=== PATIENT | female | born 1940 | race Caucasian/White ===

== ENCOUNTER 2017-10-28 13:07 | Outpatient (CLI) | payer MEDICARE, OTHER ==
--- NOTE | 2017-10-28 13:53 | RAD ---
CHEST PA AND LATERAL: History: 77-year-old female with history of dyspnea. Comparison: 01-09-15 FINDINGS: There is some nodular fullness of the left hilar region when compared to prior exam, 01-09-15. There is some patchy linear parenchymal changes in the lateral aspect of the mid and upper left lung zone extending to the lateral pleura. There is nonspecific and could represent a small focus of acute pneumonia although it could conceivably represent some post obstructive pneumonitis secondary to nod ular fullness in the left hilar region with a potential left hilar mass or adenopathy. Hyperinflation and bullous changes, particularly in the right upper lobe. Stable bibasilar chronic lung changes. IMPRESSION: Somewhat prominent nodularity of the left hilum raising concern for mass or adenopathy. New somewhat linear parenchymal change in the left upper mid lung zone laterally. This certainly could represent s ome acute pneumonia or possibly post obstructive pneumonitis. Consider follow up CT scan. Biapical hy perinflation, particularly on the right side. Stable chronic lung changes in the bases. POS: BRIANNA
== END 2017-10-28 13:08 | disposition home or self-care (01) ==
LOC: RAD 13:07
PROVIDERS: ATTEND Internal Medicine Critical Care Medicine
DX: R06.00 Dyspnea, unspecified (principal)
CPT/HCPCS: 71046

== ENCOUNTER 2017-11-10 13:46 | Outpatient (CLI) | payer MEDICARE, OTHER ==
--- NOTE | 2017-11-10 15:36 | RAD ---
TWO VIEWS CHEST 11/10/17 PROVIDED CLINICAL HISTORY: Dyspnea. FINDINGS: COMPARISON: 10/28/17 Cardiac and mediastinal silhouette is unchanged in appearance. Chronic obstructive changes are redemo nstrated. Prominence of the left hilum and scarring type changes involving the left hemithorax are re demonstrated. No definite evidence for pleural fluid or pneumothorax. Postoperative changes are again seen associated with the right proximal humerus. IMPRESSION: Persistent abnormal appearance to the left hilum that may reflect mass or adenopathy. Consider chest CT. POS: Jaleesa
== END 2017-11-10 13:47 | disposition home or self-care (01) ==
LOC: RAD 13:46
PROVIDERS: ATTEND Internal Medicine Critical Care Medicine
DX: R06.00 Dyspnea, unspecified (principal); R91.8 Other nonspecific abnormal finding of lung field
CPT/HCPCS: 71046

== ENCOUNTER 2018-01-11 12:37 | Outpatient (CLI) | payer MEDICARE, OTHER ==
--- NOTE | 2018-01-11 14:44 | RAD ---
TWO VIEW CHEST: HISTORY: Dyspnea. COMPARISON: 11/10/17. FINDINGS: Hyperexpansion again noted. Flattened diaphragms and blunted CP angles appear stable. The lungs aldair ear clear with no infiltrate seen. Bullous changes in the upper lungs again noted. Heart size withi n normal range. A wedge compression deformity involving the L1 vertebrae is again seen. This appears stable. IMPRESSION: Hyperexpansion and changes of chronic obstructive pulmonary disease again noted. No acute process or interval change noted. POS: [facility]
== END 2018-01-11 12:38 | disposition home or self-care (01) ==
LOC: RAD 12:37
PROVIDERS: ATTEND Internal Medicine Critical Care Medicine
DX: R06.00 Dyspnea, unspecified (principal); J98.4 Other disorders of lung
CPT/HCPCS: 71046

== ENCOUNTER 2018-11-28 13:14 | Emergency (ER) | payer MEDICARE, OTHER ==
[~2018-11-28 13:14] MED LIST: Iopamidol 370 76% 100 ML VIAL ONE
[2018-11-28] MEDS ORDERED: methylPREDNISolone Sod Succ/PF 125 MG/2 ML VIAL ONE (13:53)
[2018-11-28] MEDS ORDERED: Water For Inject, Bacteriostat 30 ML ONE (13:53)
--- NOTE | 2018-11-28 14:03 | RAD ---
Chest AP view INDICATION: Shortness of breath COMPARISON: December 31, 2014 and January 11, 2018 FINDINGS: Lungs:COPD changes stable. Cardiac silhouette pulmonary vasculature:Mild cardiomegaly is stable. Pulmonary vasculature appears w ithin normal limits. Pleural spaces:No pleural effusion or pneumothorax is demonstrated. Upper abdomen:No abnormality seen. Osseous structures: No acute osseous abnormality. There is a healed, instrumented proximal right jeanie radha fracture. Additional findings:None. IMPRESSION: No acute cardiopulmonary abnormality.
[2018-11-28 14:22] LABS: Band 6 % (5-11); Eosinophils 1 % (0-10); Hemoglobin 13.2 g/dL (12.0-16.0); Lymphocytes 15 % (21-51); MDiff Complete? YES; Mean Corpuscular HGB CONC 33.3 g/dL (32.0-36.0); Mean Corpuscular Hemoglobin 29.5 pg (27.0-31.0); Mean Corpuscular Volume 88.6 fL (78.0-98.0); Mean Platelet Volume 8.1 fL (7.4-10.4); Monocytes 13 % (0-10); Neutrophil 63 % (42-75); Platelet Count 166 thou/uL (130-400); Platelet Morphology Comment Appears Adequate; Red Blood Cell (RBC) Count 4.47 mill/uL (4.20-5.40); White Blood Cell (WBC) Count 5.9 thou/uL (4.8-10.8)
[2018-11-28 14:28] LABS: ALT (SGPT) 58 U/L (8-55); AST (SGOT) 66 U/L (5-34); Albumin 3.9 g/dL (3.4-4.8); Alkaline Phosphatase 102 U/L (40-150); Anion Gap 16 mmol/L (10-20); BUN (Urea Nitrogen) 14 mg/dL (9.8-20.1); Bilirubin, Total 0.4 mg/dL (0.2-1.2); CK (CPK) 33 U/L (29-168); Calc. Creatinine Clearance 0 mL/min (70-130); Calcium 10.5 mg/dL (7.8-10.44); Carbon Dioxide 27 mmol/L (23-31); Chloride 97 mmol/L (98-107); Estimated GFR-MDRD 43; Glucose 111 mg/dL (83-110); Potassium 3.9 mmol/L (3.5-5.1); Protein, Total 6.9 g/dL (6.0-8.3); Sodium 136 mmol/L (136-145)
--- NOTE | 2018-11-28 15:26 | CT ---
CTA Angio Chest W WO Con 11/28/2018 2:33 PM Indication: Chest Pain Technique: Multiple CTA images were obtained of the thorax with IV contrast. 3D reformatted images were constructed from the raw data. Comparison: CT thorax dated June 05, 2012 Findings: Pulmonary arteries: No central or segmental pulmonary embolus is evident. Heart and Great Vessels: Normal appearing. There is small pericardial effusion Lungs:There is severe emphysema. There is prominent bolus changes involving both upper lobes as well as portions of the right middle lobe and right lower lobe. There is a spiculated pulmonary nodule which is new involving the right lower lobe on image 124 series 9 measuring 1.2 cm. There is some adj acent tree-in-bud nodularity. There are smaller tree-in-bud nodules seen within the superior segment of the right lower lobe. There is additional tree-in-bud nodularity seen within the left lung . There is an additional spiculated 1 cm nodule within the superior segment of the left forearm and image 73 of series 9. There is subsegmental volume loss within the lingula. Pleural space: Clear. Upper Abdomen: There are bilateral renal cysts. Adrenal glands are normal appearing. The gallbladder surgically absent. There are still scattered colonic diverticula. Osseous Structures: Thoracolumbar scoliosis. No acute fracture or subluxation demonstrated. There is a stable remote L1 compression fracture Impression: 1. No central or segmental pulmonary embolus. 2. Severe emphysema with new pulmonary nodules. There are 2 separate spiculated nodules, one in each of the lower lobes. There are scattered areas of tree-in-bud nodularity. Overall the nodularity may be related to bronchiolitis of infectious or inflammatory etiology. Appropriate therapy and short-ter m CT follow-up in 6-8 weeks is recommended to document stability or resolution. 3. Bilateral renal cysts 4. Colonic diverticulosis
--- NOTE | 2018-12-01 15:05 | EKG ---
Test Reason : Blood Pressure : / mmHG Vent. Rate : 109 BPM Atrial Rate : 109 BPM P-R Int : 144 ms QRS Dur : 084 ms QT Int : 328 ms P-R-T Axes : 087 077 067 degrees QTc Int : 441 ms Sinus tachycardia with Premature atrial complexes Possible Left atrial enlargement Borderline ECG Confirmed by BELKIS COOPER ([id number]), writer editor GORDY CHANG ([id number]) on 12/01/2018 3:04:44 PM Referred By: Confirmed By:BELKIS COOPER
== END 2018-11-28 15:35 | disposition home or self-care (01) ==
LOC: SCSER 13:14
DX: J20.9 Acute bronchitis, unspecified (principal); Z87.891 Personal history of nicotine dependence
CPT/HCPCS: 71045; 71275; 80053; 82550; 83880; 84484; 85025; 85379; 93005; 96374; J2930; J7620; Q9967